=== PATIENT | male | born 1935 | race Caucasian/White ===

== ENCOUNTER → 2016-04-21 | Outpatient (CLI) | payer MEDICARE, BC ==
[2016-04-21 11:47] LABS: APTT (PATIENT) 25.4 SEC (24.3-30.1); PROTHROMBIN TIME - PATIENT 10.7 SEC (9.8-11.6)
[2016-04-21 12:06] LABS: POTASSIUM 5.2 MEQ/L (3.5-5.1)
[2016-04-21 12:17] LABS: AUTOMATED NEUTROPHIL # 2.5 TH/MM3 (1.8-7.7); BASOPHIL % 0.9 % (0.0-2.0); EOSINOPHIL # 0.2 TH/MM3 (0-0.4); EOSINOPHIL % 5.3 % (0.0-4.0); HEMATOCRIT 33.3 % (39.0-51.0); HEMO FLAGS DIFF FINAL; LYMPH % 8.7 % (9.0-44.0); LYMPHOCYTE # 0.3 TH/MM3 (1.0-4.8); MEAN CELL VOLUME 97.3 FL (80.0-100.0); MEAN CORPUSCULAR HEMOGLOBIN 34.1 PG (27.0-34.0); MEAN CORPUSCULAR HGB CONC 35.1 % (32.0-36.0); MONO % 8.1 % (0.0-8.0); PLATELET COUNT 166 TH/MM3 (150-450); RED BLOOD COUNT 3.42 MIL/MM3 (4.50-5.90); WHITE BLOOD COUNT 3.3 TH/MM3 (4.0-11.0)
--- NOTE | 2016-04-21 14:53 | EKG ---
Date Performed: 04/21/2016 Time Performed: 11:38:10 PTAGE: 80 years EKG: Sinus bradycardia with 1st degree A-V block. Leftward axis Right bundle branch block Inferi or T wave changes are nonspecific Abnormal ECG COMPARED TO PRIOR ELECTROCARDIOGRAM, RIGHT bundle bran ch block and first degree AV block are present. PREVIOUS TRACING : 07/29/2006 09.00 DOCTOR: Krunal Beebe Interpretating Date/Time 04/21/2016 14:52:48
== END ==
LOC: HCAV 11:06
DX: R31.1 Benign essential microscopic hematuria (principal); I10 Essential (primary) hypertension
CPT/HCPCS: 36415; 80048; 85025; 85610; 85730; 93005

== ENCOUNTER → 2016-06-28 | Outpatient (CLI) | payer MEDICARE, BC ==
[2016-06-28 11:25] LABS: AUTOMATED NEUTROPHIL # 1.4 TH/MM3 (1.8-7.7); BASOPHIL % 0.8 % (0.0-2.0); EOSINOPHIL # 0.1 TH/MM3 (0-0.4); EOSINOPHIL % 3.8 % (0.0-4.0); HEMATOCRIT 37.2 % (39.0-51.0); HEMO FLAGS DIFF FINAL; LYMPH % 24.7 % (9.0-44.0); LYMPHOCYTE # 0.6 TH/MM3 (1.0-4.8); MEAN CELL VOLUME 97.9 FL (80.0-100.0); MEAN CORPUSCULAR HEMOGLOBIN 32.9 PG (27.0-34.0); MEAN CORPUSCULAR HGB CONC 33.6 % (32.0-36.0); MONO % 9.6 % (0.0-8.0); NEUT % 61.1 % (16.0-70.0); PLATELET COUNT 114 TH/MM3 (150-450); RED CELL DISTRIBUTION WIDTH 13.5 % (11.6-17.2); WHITE BLOOD COUNT 2.3 TH/MM3 (4.0-11.0)
[2016-06-28 11:55] LABS: BLOOD, URINE NEG (NEG); GLUCOSE,URINE NEG (NEG); KETONE, URINE NEG (NEG); NITRITE,URINE NEG (NEG); URINE COLOR LIGHT-YELLOW (YELLW/STRAW)
[2016-06-28 11:56] LABS: ALKALINE PHOSPHATASE 73 U/L (45-117); ALT (GPT) 36 U/L (12-78); ANION GAP 8 MEQ/L (5-15); AST (GOT) 24 U/L (15-37); BICARBONATE 28.2 MEQ/L (21.0-32.0); BLOOD UREA NITROGEN 22 MG/DL (7-18); CHLORIDE 108 MEQ/L (98-107); GLOMERULAR FILTRATION RATE 78 ML/MIN (>89); GLUCOSE,FASTING 78 MG/DL (74-99); HDL CHOLESTEROL 61.9 MG/DL (40.0-60.0); LDL CHOLESTEROL 64 MG/DL (0-99); POTASSIUM 4.4 MEQ/L (3.5-5.1); SODIUM (NA) 144 MEQ/L (136-145); TOTAL BILIRUBIN ADULT 0.7 MG/DL (0.2-1.0)
[2016-06-28 12:18] LABS: MICRO ALBUMIN RANDOM URINE RAW 10.8 MG/L (0.0-30.0)
[2016-06-28 17:48] LABS: HEMOGLOBIN A1a 1.4 %; HEMOGLOBIN A1b 0.6 %; HEMOGLOBIN Ao 84.4 %; HEMOGLOBIN F 2.8 %; HEMOGLOBIN LA1C 1.6 %; HEMOGLOBIN P3 3.4 %
== END ==
LOC: CLAB 10:45
PROVIDERS: ATTEND General Practice
DX: E11.9 Type 2 diabetes mellitus without complications (principal); E78.00 Pure hypercholesterolemia, unspecified
CPT/HCPCS: 36415; 80053; 80061; 81001; 82043; 83036; 84443; 85025

== ENCOUNTER → 2017-01-27 | Outpatient (CLI) | payer MEDICARE, BC ==
[2017-01-27 11:46] LABS: AUTOMATED NEUTROPHIL # 4.1 TH/MM3 (1.8-7.7); BASOPHIL % 0.5 % (0.0-2.0); EOSINOPHIL # 0.1 TH/MM3 (0-0.4); EOSINOPHIL % 2.2 % (0.0-4.0); HEMATOCRIT 38.3 % (39.0-51.0); HEMOGLOBIN 13.1 GM/DL (13.0-17.0); LYMPH % 11.5 % (9.0-44.0); LYMPHOCYTE # 0.6 TH/MM3 (1.0-4.8); MEAN CELL VOLUME 99.2 FL (80.0-100.0); MEAN CORPUSCULAR HGB CONC 34.3 % (32.0-36.0); MONO % 5.4 % (0.0-8.0); MONOCYTE # 0.3 TH/MM3 (0-0.9); NEUT % 80.4 % (16.0-70.0); PLATELET COUNT 200 TH/MM3 (150-450); RED BLOOD COUNT 3.86 MIL/MM3 (4.50-5.90); RED CELL DISTRIBUTION WIDTH 14.4 % (11.6-17.2); WHITE BLOOD COUNT 5.1 TH/MM3 (4.0-11.0)
[2017-01-27 12:16] LABS: ALBUMIN 3.7 GM/DL (3.4-5.0); AST (GOT) 23 U/L (15-37); BICARBONATE 26.4 MEQ/L (21.0-32.0); BLOOD UREA NITROGEN 25 MG/DL (7-18); CALCIUM 8.9 MG/DL (8.5-10.1); CHLORIDE 106 MEQ/L (98-107); CHOLESTEROL 151 MG/DL (120-200); CREATININE 0.97 MG/DL (0.60-1.30); GLOMERULAR FILTRATION RATE 75 ML/MIN (>89); GLUCOSE,FASTING 101 MG/DL (74-99); SODIUM (NA) 140 MEQ/L (136-145); TRIGLYCERIDES 47 MG/DL (42-150)
[2017-01-27 12:24] LABS: BILIRUBIN, URINE NEG (NEG); BLOOD, URINE NEG (NEG); GLUCOSE,URINE NEG (NEG); KETONE, URINE NEG (NEG); NITRITE,URINE NEG (NEG); URINE COLOR LIGHT-YELLOW (YELLW/STRAW); URINE LEUKOCYTE ESTERASE NEG (NEG)
[2017-01-27 12:27] LABS: ALKALINE PHOSPHATASE 87 U/L (45-117); ALT (GPT) 40 U/L (12-78); CHOLESTEROL/ HDL RATIO 2.79 RATIO; HDL CHOLESTEROL 54.1 MG/DL (40.0-60.0); LDL CHOLESTEROL 88 MG/DL (0-99); TOTAL BILIRUBIN ADULT 0.7 MG/DL (0.2-1.0)
[2017-01-27 14:25] LABS: HEMOGLOBIN A1C 6.1 % (4.3-6.0)
== END ==
LOC: CLAB 10:47
PROVIDERS: ATTEND General Practice
DX: E11.9 Type 2 diabetes mellitus without complications (principal); E78.00 Pure hypercholesterolemia, unspecified; C61 Malignant neoplasm of prostate
CPT/HCPCS: 36415; 80053; 80061; 81001; 82043; 83036; 84153; 84443; 85025

== ENCOUNTER → 2017-06-23 | Outpatient (CLI) | payer MEDICARE, BC ==
[2017-06-23 10:35] LABS: AUTOMATED NEUTROPHIL # 1.8 TH/MM3 (1.8-7.7); BASOPHIL % 0.5 % (0.0-2.0); EOSINOPHIL # 0.1 TH/MM3 (0-0.4); EOSINOPHIL % 3.7 % (0.0-4.0); HEMATOCRIT 37.1 % (39.0-51.0); LYMPH % 24.2 % (9.0-44.0); LYMPHOCYTE # 0.7 TH/MM3 (1.0-4.8); MEAN CELL VOLUME 97.3 FL (80.0-100.0); MEAN CORPUSCULAR HEMOGLOBIN 34.1 PG (27.0-34.0); MEAN CORPUSCULAR HGB CONC 35.1 % (32.0-36.0); MEAN PLATELET VOLUME 7.6 FL (7.0-11.0); MONO % 8.2 % (0.0-8.0); MONOCYTE # 0.2 TH/MM3 (0-0.9); NEUT % 63.4 % (16.0-70.0); PLATELET COUNT 143 TH/MM3 (150-450); RED BLOOD COUNT 3.82 MIL/MM3 (4.50-5.90); RED CELL DISTRIBUTION WIDTH 14.3 % (11.6-17.2); WHITE BLOOD COUNT 2.8 TH/MM3 (4.0-11.0)
[2017-06-23 10:51] LABS: BILIRUBIN, URINE NEG (NEG); BLOOD, URINE NEG (NEG); GLUCOSE,URINE NEG (NEG); KETONE, URINE NEG (NEG); MUCUS URINE FEW /lpf (OCC); NITRITE,URINE NEG (NEG); SQUAMOUS EPITHELIAL CELL URINE <1 /hpf (0-5); URINE COLOR LIGHT-YELLOW (YELLW/STRAW); URINE LEUKOCYTE ESTERASE NEG (NEG)
[2017-06-23 11:00] LABS: ALBUMIN 3.5 GM/DL (3.4-5.0); BICARBONATE 26.4 MEQ/L (21.0-32.0); BLOOD UREA NITROGEN 23 MG/DL (7-18); CALCIUM 8.6 MG/DL (8.5-10.1); CHLORIDE 109 MEQ/L (98-107); CREATININE 0.96 MG/DL (0.60-1.30); GLOMERULAR FILTRATION RATE 75 ML/MIN (>89); GLUCOSE,FASTING 94 MG/DL (74-99); SODIUM (NA) 142 MEQ/L (136-145)
[2017-06-23 11:01] LABS: AST (GOT) 23 U/L (15-37); CHOLESTEROL 142 MG/DL (120-200); TRIGLYCERIDES 53 MG/DL (42-150)
[2017-06-23 11:12] LABS: ALKALINE PHOSPHATASE 76 U/L (45-117); ALT (GPT) 28 U/L (12-78); CHOLESTEROL/ HDL RATIO 2.52 RATIO; HDL CHOLESTEROL 56.2 MG/DL (40.0-60.0); LDL CHOLESTEROL 75 MG/DL (0-99); TOTAL BILIRUBIN ADULT 0.7 MG/DL (0.2-1.0); TOTAL PROTEIN 6.5 GM/DL (6.4-8.2)
[2017-06-23 15:52] LABS: HEMOGLOBIN A1C 5.8 % (4.3-6.0)
== END ==
LOC: CLAB 10:06
PROVIDERS: ATTEND General Practice
DX: E78.00 Pure hypercholesterolemia, unspecified (principal); E11.10 Type 2 diabetes mellitus with ketoacidosis without coma; C61 Malignant neoplasm of prostate; M12.9 Arthropathy, unspecified
CPT/HCPCS: 36415; 80053; 80061; 81001; 82043; 83036; 84153; 84443; 85025